=== PATIENT | male | born 1960 | race Caucasian/White ===

== ENCOUNTER 2018-06-24 08:30 | Day surgery (SDC) | payer OTHER ==
[2018-06-23 12:24] VITALS: BMI 27.5
[2018-06-24] MEDS ORDERED: PROPOFOL 20 ML ONE (09:15)
[2018-06-24] MEDS ORDERED: SUCCINYLCHOLINE CHLORIDE 200 MG/10 ML VIAL ONE (09:15)
[2018-06-24] MEDS ORDERED: MIDAZOLAM HCL 2 MG/2 ML SINGLE DOSE VIAL ONE (09:15)
[2018-06-24] MEDS ORDERED: LIDOCAINE HCL/PF 2% SDV 5ML VIAL ONE (09:55)
[2018-06-24] MEDS ORDERED: DEXAMETHASONE SOD PHOSPHATE 4 MG/1 ML VIAL ONE (09:55)
[2018-06-24] MEDS ORDERED: LIDOCAINE HCL/PF 1% SDV 5ML VIAL ONE (10:11)
[2018-06-24] MEDS ORDERED: ceFAZolin SODIUM 1 GM VIAL IVPB ONE (10:30)
[2018-06-24] MEDS ORDERED: ceFAZolin SODIUM 1 GM VIAL ONE (10:32)
[2018-06-24] MEDS ORDERED: LIDOCAINE 1%/EPI 1:100000 (50 ML MULTI DOSE VIAL) INF ONE (10:35)
[2018-06-24] MEDS ORDERED: LACTATED RINGERS SOLUTION 1,000 ML IV SCH (11:15)
[2018-06-24] MEDS ORDERED: ONDANSETRON 4 MG/2 ML VIAL IVPUSH PRN (11:46)
[2018-06-24] MEDS ORDERED: oxyCODONE HCL 5 MG TABLET PO PRN (11:46)
--- NOTE | 2018-06-24 11:56 | OP ---
DATE OF OPERATION: 06/24/2018 SURGICAL ATTENDING: Angela Rhodes MD PREOPERATIVE DIAGNOSIS: Right flank mass. POSTOPERATIVE DIAGNOSIS: Right flank mass. ANESTHESIA: General endotracheal. PROCEDURE: Right flank mass excision. DESCRIPTION OF PROCEDURE: Patient was taken into the operating room, placed in a supine position, and LMA was placed and anesthesia was induced. He was then turned onto the left side. The table break was placed. The beanbag was inflated and all pressure points were checked and protected. The right flank mass was identified, marked out, and local anesthesia was administered. An oblique incision was made over the mass and carried down through subcutaneous tissues. The mass was identified, dissected free from surrounding tissues, and removed. Hemostasis was achieved with electrocautery. A SWETA drain was placed, brought out through the skin, and sutured with a nylon stitch. The skin was then closed in two layers. Dermabond was placed. The patient was then awakened and taken to recovery in stable condition. Dr. Rhodes, the attending surgeon, was present throughout the entire procedure. ANGELA RHODES M.D. [id number]
[2018-06-24 17:54] VITALS: BP 113/67; PULSE 67; TEMP 97.8
--- NOTE | 2018-06-29 14:46 | PATH ---
Surgical Pathology Report Patient Name: TONY MARAVILLA [facility]. Rec. #: [id number] /Age/Gender: 1960 (Age: 58) / M Account: [id number] Location: [facility] SURGICAL Taken: 06/24/2018 Received: 06/24/2018 Reported: 06/29/2018 Physicians: Mateo Aguilar M.D. Specimen(s) Received MASS OF RIGHT FLANK Clinical History Right flank mass Final Diagnosis FLANK MASS, RIGHT,EXCISION: MATURE FIBROADIPOSE TISSUE CONSISTENT WITH LIPOMA. Comment: No significant atypia, hemorrhage, or necrosis identified. Electronically Signed Cathi Lowery M.D. Gross Description Received in formalin labeled "right flank mass," is a 14.0 x 10.0 x 4.0 cm portion of yellow, lobulated adipose tissue. Sectioning reveals homogeneous yellow, smooth fat. No areas of hemorrhage or necrosis are identified. [employer] sections are submitted in 10 cassettes. /06/24/2018 saudi06/24/2018
== END 2018-06-24 15:00 | disposition home or self-care (01) ==
LOC: JASU-SURG 08:30
PROVIDERS: ATTEND Surgery
PROC: 0JB70ZX Excision of Back Subcutaneous Tissue and Fascia, Open Approach, Diagnostic (ICD-10-PCS; principal; 2018-06-24 10:00)
DX: D17.39 Benign lipomatous neoplasm of skin and subcutaneous tissue of other sites (principal)
CPT/HCPCS: 88304-TC; 94760

== ENCOUNTER 2020-05-01 10:01 | Emergency (ER) | payer OTHER ==
[2020-05-01 10:05] VITALS: BP 126/82; PULSE 86; TEMP 98.3; BMI 26.8
== END 2020-05-01 12:11 | disposition home or self-care (01) ==
LOC: JERFT 10:01
DX: M25.512 Pain in left shoulder (principal)
CPT/HCPCS: 73030-TC-LT-FY; 73060-TC-LT-FY; 99284-25

== ENCOUNTER 2020-05-06 08:47 | Day surgery (SDC) | payer OTHER ==
[2020-05-06 09:45] VITALS: BMI 26.6
[2020-05-06] MEDS ORDERED: PROPOFOL 20 ML ONE (11:17)
[2020-05-06] MEDS ORDERED: MIDAZOLAM HCL 2 MG/2 ML SINGLE DOSE VIAL ONE (11:18)
[2020-05-06] MEDS ORDERED: ROCURONIUM BROMIDE 50 MG/5 ML VIAL ONE (11:38)
[2020-05-06] MEDS ORDERED: ceFAZolin SODIUM 1 GM VIAL ONE (12:46)
[2020-05-06] MEDS ORDERED: DEXAMETHASONE SOD PHOSPHATE 4 MG/1 ML VIAL ONE (12:46)
[2020-05-06] MEDS ORDERED: ONDANSETRON 4 MG/2 ML VIAL ONE (12:46)
[2020-05-06] MEDS ORDERED: BUPIVACAINE HCL/PF 0.25% (2.5MG/ML) 10 ML VIAL IJ ONE (14:30)
[2020-05-06] MEDS ORDERED: ONDANSETRON 4 MG/2 ML VIAL IVPUSH PRN (15:17)
[2020-05-06] MEDS ORDERED: oxyCODONE HCL 5 MG TABLET PO PRN ×3 (15:17→15:29)
[2020-05-06] MEDS ORDERED: ACETAMINOPHEN 325 MG TABLET (FP) PO PRN (15:29)
[2020-05-06] MEDS ORDERED: LACTATED RINGERS SOLUTION 1,000 ML IV SCH (15:30)
[2020-05-06 16:16] VITALS: TEMP 97.7
[2020-05-06 16:59] VITALS: BP 149/79; PULSE 65
== END 2020-05-06 17:01 | disposition home or self-care (01) ==
LOC: FASUSAT 08:47
PROVIDERS: ATTEND Orthopaedic Surgery
PROC: 0RSH0ZZ Reposition Left Acromioclavicular Joint, Open Approach (ICD-10-PCS; 2020-05-06)
PROC: 0PSB04Z Reposition Left Clavicle with Internal Fixation Device, Open Approach (ICD-10-PCS; principal; 2020-05-06 12:41)
DX: S42.032A Displaced fracture of lateral end of left clavicle, initial encounter for closed fracture (principal); S43.82XA Sprain of other specified parts of left shoulder girdle, initial encounter; W18.30XA Fall on same level, unspecified, initial encounter; Y93.9 Activity, unspecified; Y92.9 Unspecified place or not applicable
CPT/HCPCS: 23515; 23550; C1713; 73000-TC-LT-FY; 76000-TC-FY; 94760

== ENCOUNTER 2023-07-03 10:03 | Emergency (ER) | payer OTHER ==
[2023-07-03 10:10] VITALS: PULSE 73; BMI 26.5
[2023-07-03] MEDS ORDERED: DIPHTH,PERTUSS(ACELL),TET 0.5 ML DISP.SYRIN IM ONE ×2 (10:34→11:37)
[2023-07-03] MEDS ORDERED: ACETAMINOPHEN 500 MG TABLET (FP) PO ONE (11:45)
[2023-07-03] MEDS ORDERED: ACETAMINOPHEN 500 MG TABLET (FP) ONE (11:59)
[2023-07-03] MEDS ORDERED: BACITRACIN 0.9 GM PACKET ONE (12:17)
[2023-07-03 13:42] VITALS: BP 120/74; RESP 18; TEMP 98.6
== END 2023-07-03 13:30 | disposition home or self-care (01) ==
LOC: JER 10:03
PROC: 3E0234Z Introduction of Serum, Toxoid and Vaccine into Muscle, Percutaneous Approach (ICD-10-PCS; principal; 2023-07-03)
DX: S61.411A Laceration without foreign body of right hand, initial encounter (principal); S09.90XA Unspecified injury of head, initial encounter; W00.0XXA Fall on same level due to ice and snow, initial encounter
CPT/HCPCS: 70450-TC; 73110-TC-RT-FY; 73130-TC-RT-FY; 90715; 93005; 93010; 99285-25